=== PATIENT | male | born 1960 | race Caucasian/White ===

== ENCOUNTER → 2023-10-04 11:03 | Outpatient (REF) | payer BC, SELFPAY ==
--- NOTE | 2023-10-04 16:09 | EEG.RPT ---
Electroencephalogram Report
Recording
Date of EE10/04/23
Type of EEG: Routine
Length of EEG recordin minutes
Done with Video Recording: Yes
Patient Status: Outpatient
Recording Conditions: Awake, Drowsy and Asleep
Hyperventilation Performed: Yes
Photic Stimulation Performed: Yes
Report
GREATER THAN 1 HOUR EEG REPORT
EEG INTERPRETATION:
Unremarkable EEG for age
CLINICAL CORRELATION:
A normal EEG does not rule out a diagnosis of epilepsy. If clinical suspicion for seizure persists, a prolonged recording may be warranted.
Clinical correlation is advised.
METHODS:
A 21 channel digitized electroencephalogram (EEG) was performed in the [facility]. The 10/20 international system of electrode placement was used with ECG and lateral/vertical eye movements recorded. Persyst quantitative EEG
analysis was performed.
ELECTROENCEPHALOGRAPHER IMPRESSION(S):
Quality of study
Good
Background
Unremarkable, well maintained, medium amplitude alpha-frequency and unremarkable anterior-posterior voltage gradient
With eye opening the background activity changed to a low voltage mixture of frequencies.
Sleep
Drowsiness present
Stage 1 recorded
Hyperventilation
Did not activate the record
Photic Stimulation
Did not activate the record
ECG
Normal sinus rhythm
== END ==
LOC: EEG 11:03
PROVIDERS: ATTENDING PHYSICIAN Internal Medicine
DX: R40.4 Transient alteration of awareness (principal); R41.3 Other amnesia
CPT/HCPCS: 95816

== ENCOUNTER → 2024-05-06 13:57 | Outpatient (REF) | payer BC, SELFPAY ==
[2024-05-06 14:23] LABS: % Basophils 1.4 % (0-2); % Eosinophils 1.8 % (0-6); % Immature Granulocytes 0.2 % (0-0.5); % Lymphocytes 38.1 % (20.5-51.1); % Monocytes 10.4 % (1.7-9.3); % Neutrophils 48.1 % (42.2-75.2); Absolute Basophils 0.1 10^3/uL (0-0.2); Absolute Eosinophils 0.1 10^3/uL (0-0.7); Absolute Lymphocytes 1.9 10^3/uL (1.2-3.4); Absolute Monocytes 0.5 10^3/uL (0.1-0.6); Absolute Neutrophils 2.4 10^3/uL (1.4-6.5); Hematocrit 44.7 % (39.0-52.0); Hemoglobin 15.4 g/dL (13.0-18.0); Mean Corp Hgb Conc. 34.5 g/dL (33.0-37.0); Mean Corpuscular Hgb 32.4 pg (27.0-31.0); Mean Corpuscular Volume 93.9 fL (80.0-94.0); Mean Platelet Volume 10.3 fL (7.4-10.4); Nucleated Red Blood Cells % 0 % (-); Platelet Count 252 10^3/uL (130-400); Red Blood Cell Count 4.76 10^6/uL (4.70-6.10); Red Cell Dist. Width 12.5 % (11.5-14.5); White Blood Cell Count 4.9 10^3/uL (4.8-10.8)
[2024-05-06 14:37] LABS: D-Dimer 0.31 ug/mlFEU (0.00-0.50)
[2024-05-06 14:41] LABS: ALT (SGPT) 33 U/L (0-50); AST (SGOT) 31 U/L (17-59); Albumin 4.7 g/dl (3.5-5.0); Alkaline Phosphatase 84 U/L (38-126); Blood Urea Nitrogen 14 mg/dl (9-20); Calcium 9.2 mg/dl (8.4-10.2); Carbon Dioxide 29 mmol/L (22-30); Chloride 103 mmol/L (98-107); Glucose 92 mg/dl (70-99); Potassium 4.5 mmol/L (3.5-5.1); Sodium 140 mmol/L (135-145); Total Protein 7.5 g/dl (6.3-8.2); eGFR > 60.00
== END ==
LOC: REG 13:57
PROVIDERS: ATTENDING PHYSICIAN Internal Medicine
DX: R07.89 Other chest pain (principal); Z86.718 Personal history of other venous thrombosis and embolism; R68.89 Other general symptoms and signs
CPT/HCPCS: 36415; 80053; 85025; 85379

== ENCOUNTER → 2024-05-17 07:15 | Outpatient (REF) | payer BC, SELFPAY | LOC: RCS 07:15 | PROVIDERS: ATTENDING PHYSICIAN Internal Medicine Cardiovascular Disease; FAMILY PHYSICIAN Internal Medicine | DX: R06.09 Other forms of dyspnea (principal) | CPT/HCPCS: 78452; 93017; A9500 ==

== ENCOUNTER → 2024-06-13 15:00 | Outpatient (REF) | payer BC, SELFPAY | LOC: HWRCS 15:00 | PROVIDERS: ATTENDING PHYSICIAN Internal Medicine Cardiovascular Disease | DX: I50.9 Heart failure, unspecified (principal) | CPT/HCPCS: 93306 ==

== ENCOUNTER → 2024-08-23 09:54 | Outpatient (REF) | payer BC, SELFPAY ==
[2024-08-23 10:23] LABS: % Basophils 1.2 % (0-2); % Eosinophils 0.7 % (0-6); % Immature Granulocytes 0.2 % (0-0.5); % Lymphocytes 37.6 % (20.5-51.1); % Monocytes 10.1 % (1.7-9.3); % Neutrophils 50.2 % (42.2-75.2); Absolute Basophils 0.1 10^3/uL (0-0.2); Absolute Lymphocytes 1.6 10^3/uL (1.2-3.4); Absolute Monocytes 0.4 10^3/uL (0.1-0.6); Absolute Neutrophils 2.1 10^3/uL (1.4-6.5); Hematocrit 45.2 % (39.0-52.0); Hemoglobin 16.1 g/dL (13.0-18.0); Mean Corp Hgb Conc. 35.6 g/dL (33.0-37.0); Mean Corpuscular Volume 92.6 fL (80.0-94.0); Mean Platelet Volume 10.3 fL (7.4-10.4); Nucleated Red Blood Cells % 0 % (-); Platelet Count 255 10^3/uL (130-400); Red Blood Cell Count 4.88 10^6/uL (4.70-6.10); Red Cell Dist. Width 12.4 % (11.5-14.5); White Blood Cell Count 4.3 10^3/uL (4.8-10.8)
[2024-08-23 10:48] LABS: ALT (SGPT) 34 U/L (0-50); AST (SGOT) 32 U/L (17-59); Albumin 4.4 g/dl (3.5-5.0); Alkaline Phosphatase 99 U/L (38-126); Blood Urea Nitrogen 13 mg/dl (9-20); Calcium 9.5 mg/dl (8.4-10.2); Carbon Dioxide 31 mmol/L (22-30); Chloride 104 mmol/L (98-107); Glucose 97 mg/dl (70-99); Potassium 4.9 mmol/L (3.5-5.1); Sodium 142 mmol/L (135-145); Total Bilirubin 1.5 mg/dl (0.2-1.3); Total Protein 7.5 g/dl (6.3-8.2); eGFR > 60.00
== END ==
LOC: REG 09:54
PROVIDERS: ATTENDING PHYSICIAN Internal Medicine
DX: K92.2 Gastrointestinal hemorrhage, unspecified (principal)
CPT/HCPCS: 36415; 80053; 85025

== ENCOUNTER 2024-09-23 06:19 | Day surgery (SDC) | payer BC, SELFPAY | END 2024-09-23 14:19 | disposition home or self-care (01) | LOC: GI 06:19 | PROVIDERS: ATTENDING PHYSICIAN Internal Medicine | DX: K64.8 Other hemorrhoids (principal); R19.5 Other fecal abnormalities; R10.13 Epigastric pain; K31.89 Other diseases of stomach and duodenum; K63.5 Polyp of colon; K29.50 Unspecified chronic gastritis without bleeding | CPT/HCPCS: 45380; 43239; 88305; 88342 ==

== ENCOUNTER → 2025-02-05 09:26 | Outpatient (REF) | payer BC, SELFPAY | LOC: RAD 09:26 | PROVIDERS: ATTENDING PHYSICIAN Internal Medicine | DX: M79.604 Pain in right leg (principal); M79.605 Pain in left leg; Z86.718 Personal history of other venous thrombosis and embolism | CPT/HCPCS: 93970 ==

== ENCOUNTER → 2025-04-24 11:56 | Outpatient (REF) | payer BC, SELFPAY | LOC: HWRCS 11:56 | PROVIDERS: ATTENDING PHYSICIAN Internal Medicine Cardiovascular Disease; FAMILY PHYSICIAN Internal Medicine | DX: I25.10 Atherosclerotic heart disease of native coronary artery without angina pectoris (principal); Z95.5 Presence of coronary angioplasty implant and graft; R07.89 Other chest pain | CPT/HCPCS: 78452; 93017; A9500 ==